=== PATIENT | female | born 1960 | race Caucasian/White ===

== ENCOUNTER → 2022-09-20 | Outpatient (CLI) | payer BC | LOC: MHCPAIN 09:25 | DX: M47.812 Spondylosis without myelopathy or radiculopathy, cervical region (principal); M54.2 Cervicalgia ==

== ENCOUNTER → 2022-09-20 | Outpatient (CLI) | payer BC | LOC: MHCPAIN 07:52 | DX: M54.2 Cervicalgia (principal); M47.892 Other spondylosis, cervical region; M54.12 Radiculopathy, cervical region | CPT/HCPCS: G0463; J0461; J1100; Q9967 ==

== ENCOUNTER → 2022-10-20 | Outpatient (CLI) | payer BC | LOC: MHCPAIN 11:04 | DX: M47.812 Spondylosis without myelopathy or radiculopathy, cervical region (principal); M54.12 Radiculopathy, cervical region | CPT/HCPCS: G0463 ==

== ENCOUNTER → 2023-05-16 | Outpatient (CLI) | payer BC | LOC: MHCPAIN 11:51 | DX: M47.812 Spondylosis without myelopathy or radiculopathy, cervical region (principal); M54.12 Radiculopathy, cervical region | CPT/HCPCS: J1100; Q9967 ==